=== PATIENT | female | born 1985 | race Caucasian/White ===

== ENCOUNTER 2016-08-03 10:20 | Emergency (ER) | payer OTHER ==
[~2016-08-03 10:20] MED LIST: COLACE100 MG PO; MOTRIN-DPS800 MG PO; NEWMANS NIPPLE CREAM TP; PROTONIX40 MG PO; TYLENOL #3 DPS1 TAB PO
--- NOTE | 2016-08-04 13:29 | ER ---
ADMIT: 08/03/2016 RM/LOC: ER [facility] MR#: [id number] [id number] [place], [place] [id number] TERRIE CHAVEZ [address] [place] [address] Emergency Room Report SEX: F AGE: 30 : 1985 DATE: 08/03/2016 HISTORY OF PRESENT ILLNESS: This is a 30-year-old female, who was accompanied by her mother, who brought her to the ER. She says she took 3-4 Wellbutrin's this morning. She had an altercation and a heavy argument with her about 2 hours ago and took the medication thinking that it was good for depression, may be few more would be better. She denies any suicide thoughts or plan. She was pretty upset with him. She has a history of anxiety and depression. She came in private vehicle. Her review of systems is otherwise negative. Her Wellbutrin is 150 mg XL. She took 3 tabs where she reported to [facility] that she had probably taken 4. She at this point has no respiratory issues, no fever, no myalgia, and no muscle rigidity. She does have slight tachycardia. Her heart rate is 102, blood pressure is 141/82, respirations 16, temp is 97.4, O2 sats 100%. She says she felt very scared after she did and contacted her mom, [employer]. She is very concerned about the possibility of a seizure. She did not intentionally take the medications to kill herself, but thought that it would be appropriate to take more to get her through the depression. She is concerned about seizures as mentioned, but I mentioned that there are other things that we need to be also concerned if she did take that high dose. PHYSICAL EXAMINATION: On physical examination, she is very cooperative alert and oriented. Vitals are normal except for mentioned heart rate of 102. She has depressed mood and tearful, but is very pleasant. Rest of the examination is negative. I consulted with Dr. Richardson after visiting with the patient, and I also contacted Dr. Arias who is aware of the situation. I will go ahead and release her home, her mother is with her. She will need her mom with her all day. I am going to go ahead and give her an Ativan to help her relax a little bit as she is still worried up from the incident this morning. She may experience certain things specifically chills, agitation, tremors, hallucination and not necessarily so, but if she does, she needs to call the ambulance for transport. Recommended counseling mental health from [facility] per Dr. Arias's recommendation. CLINICAL IMPRESSION: 1. Acute stress reaction. 2. Depression. 3. Antidepressant overdose. PAULIE Butcher / Ja Richardson MD / lexa JOB #: [id number] CC: Ja Richardson MD, Attending Physician UNKNOWN, Family Physician
== END 2016-08-03 11:45 | disposition home or self-care (01) ==
LOC: ER 10:20
DX: T43.291A Poisoning by other antidepressants, accidental (unintentional), initial encounter (principal); F43.0 Acute stress reaction; F32.9 Major depressive disorder, single episode, unspecified; Z79.899 Other long term (current) drug therapy; Y99.8 Other external cause status